=== PATIENT | female | born 1980 | race African-American/Black ===

== ENCOUNTER 2017-09-20 13:02 | Emergency (ER) | payer MEDICAID ==
[~2017-09-20] VITALS: Ht 182.9 cm; Wt 99.8 kg
[2017-09-20] MEDS ORDERED: SULFAMETH/TRIMETH 800/160 MG TABLET PO ONE (14:15)
[2017-09-20] MEDS ORDERED: SULFAMETH/TRIMETH 800/160 MG TABLET ONE (14:15)
[2017-09-20] MEDS ORDERED: FLUCONAZOLE 100 MG TABLET PO ONE (14:15)
[2017-09-20] MEDS ORDERED: FLUCONAZOLE 100 MG TABLET ONE (14:15)
--- NOTE | 2017-09-20 14:18 | NUR ---
MSE COMPLETED, MEDS ADMUINISTERED. PT D/C'D HOME, ACI/RX X1 GIVEN. PT AMBULATED W/O DIFF/TOOK ALL BELONGINGS.
[2017-09-20 14:20] VITALS: BP 110/68
== END 2017-09-20 14:22 | disposition home or self-care (01) ==
LOC: ER 13:10
DX: A49.02 Methicillin resistant Staphylococcus aureus infection, unspecified site (principal); I96 Gangrene, not elsewhere classified; J45.909 Unspecified asthma, uncomplicated; Z88.8 Allergy status to other drugs, medicaments and biological substances
CPT/HCPCS: A4663

== ENCOUNTER 2018-01-28 16:27 | Emergency (ER) | payer MEDICAID ==
[~2018-01-28] VITALS: Ht 180.3 cm; Wt 102.1 kg
--- NOTE | 2018-01-28 17:10 | NUR ---
NO BED AVAILABLE, PT EVALUATED IN HALLWAY.
--- NOTE | 2018-01-28 17:10 | NUR ---
DR WILMAN ARCOS PT.
[2018-01-28 17:31] LABS: BASOPHILS % (AUTO) 0.6 % (0.0-2.0); EOSINOPHILS # (AUTO) 0.2 K/uL (0.0-0.7); EOSINOPHILS % (AUTO) 2.4 % (0.0-7.0); HEMATOCRIT 30.7 % (31.2-41.9); HEMOGLOBIN 9.8 g/dL (10.9-14.3); LYMPHOCYTES # (AUTO) 2.5 K/uL (20.0-40.0); LYMPHOCYTES % (AUTO) 34.1 % (20.5-51.5); MEAN CORPUSCULAR HEMOGLOBIN 22.7 uug (24.7-32.8); MEAN CORPUSCULAR HGB CONC 32 g/dL (32.3-35.6); MEAN CORPUSCULAR VOLUME 70.8 fL (75.5-95.3); MONOCYTES # (AUTO) 0.6 K/uL (2.0-10.0); MONOCYTES % (AUTO) 7.6 % (0.0-11.0); NEUTROPHILS # (AUTO) 4.1 K/uL (1.8-8.9); NEUTROPHILS % (AUTO) 55.3 % (38.5-71.5); PLATELET COUNT (AUTO) 330 K/uL (179-408); RED BLOOD CELL COUNT(AUTO) 4.34 MIL/uL (3.63-4.92); WHITE BLOOD COUNT (AUTO) 7.3 K/uL (3.8-11.8)
[2018-01-28 17:51] LABS: CREATININE 0.8 mg/dL (0.6-1.3); POTASSIUM 3.5 mmol/L (3.5-5.1)
[2018-01-28 17:56] LABS: BILIRUBIN,DIRECT 0.1 mg/dL (0.0-0.2); BILIRUBIN,TOTAL 0.3 mg/dL (0.2-1.0); TOTAL PROTEIN, SERUM 8.2 g/dL (6.4-8.2)
--- NOTE | 2018-01-28 17:57 | NUR ---
AWAITING TEST RESULTS. PATIENT IS SITTING UP IN NO DISTRESS...
[2018-01-28 18:40] LABS: *BILIRUBIN,URIN NEGATIVE (NEGATIVE); *BLOOD, URINE NEGATIVE (NEGATIVE); *CLARITY,URINE CLOUDY (CLEAR); *COLOR,URINE YELLOW (YELLOW); *KETONES,URINE NEGATIVE (NEGATIVE); *PROTEIN,URINE NEGATIVE (NEGATIVE); *UROBILINOGEN,URINE 0.2 E.U./dl (NORMAL); LEUKOCYTE ESTERASE ,URINE TRACE (NEGATIVE); NITRITE, URINE NEGATIVE (NEGATIVE); PH,URINE 5.5 (5.0-8.0); UGLUCOSE NEGATIVE (NEGATIVE)
[2018-01-28 18:44] LABS: BACTERIA,URINE MODERATE /HPF (NONE SEEN); RBC,URINE 0-3 /HPF (0-3); SQUAMOUS EPITHELIAL CELL,UR MODERATE /HPF (NONE SEEN)
[2018-01-28] MEDS ORDERED: IBUPROFEN 800 MG TABLET PO ONE (19:30)
[2018-01-28] MEDS ORDERED: IBUPROFEN 800 MG TABLET ONE (19:34)
--- NOTE | 2018-01-28 20:20 | NUR ---
US TECH IN ROOM TO DO US
--- NOTE | 2018-01-28 20:24 | NUR ---
US PATRICIA AT BEDSIDE.
--- NOTE | 2018-01-28 20:51 | NUR ---
Patient discharged to home in stable conditon. Written and verbal after care instructions given. Patient verbalizes understanding of instructions.
[2018-01-28 20:52] VITALS: BP 110/74
== END 2018-01-28 20:52 | disposition home or self-care (01) ==
LOC: ER 16:30
DX: R10.13 Epigastric pain (principal); J45.909 Unspecified asthma, uncomplicated; Z88.6 Allergy status to analgesic agent
CPT/HCPCS: 36415; 76705; 80048; 80076; 81001; 83690; 84703; 85025; 99285; A4663

== ENCOUNTER 2018-02-04 22:45 | Emergency (ER) | payer MEDICAID ==
[~2018-02-04] VITALS: Ht 177.8 cm; Wt 103.0 kg
--- NOTE | 2018-02-05 00:28 | NUR ---
Patient discharged to home in stable conditon. Written and verbal after care instructions given. Patient verbalizes understanding of instructions. Patient able to ambulate unassisted with a steady gait. Patient left with all personal belongings.
[2018-02-05 00:33] VITALS: BP 116/62
== END 2018-02-05 00:28 | disposition home or self-care (01) ==
LOC: ER 22:46
DX: S81.051A Open bite, right knee, initial encounter (principal); J45.909 Unspecified asthma, uncomplicated; Z88.6 Allergy status to analgesic agent; W54.0XXA Bitten by dog, initial encounter; Y93.89 Activity, other specified; Y92.89 Other specified places as the place of occurrence of the external cause; Y99.8 Other external cause status
CPT/HCPCS: 99283; A4663

== ENCOUNTER 2018-11-28 21:07 | Emergency (ER) | payer MEDICAID, OTHER ==
[~2018-11-28] VITALS: Ht 180.3 cm; Wt 90.7 kg
--- NOTE | 2018-11-28 21:34 | NUR ---
Dr. Morin at bedside for MSE.
--- NOTE | 2018-11-28 21:44 | NUR ---
Patient discharged to home in stable conditon. Written and verbal after care instructions given. Patient verbalizes understanding of instructions. Pt ambulated out of ER with steady gait, no acute signs of distress, VSS, all belongings taken.
[2018-11-28 21:45] VITALS: BP 116/76
== END 2018-11-28 21:45 | disposition home or self-care (01) ==
LOC: ER 21:07
DX: B34.9 Viral infection, unspecified (principal); J45.909 Unspecified asthma, uncomplicated; F17.200 Nicotine dependence, unspecified, uncomplicated; Z88.6 Allergy status to analgesic agent
CPT/HCPCS: A4663

== ENCOUNTER 2019-01-24 13:38 | Emergency (ER) | payer OTHER ==
[~2019-01-24] VITALS: Ht 180.3 cm; Wt 99.8 kg
[2019-01-24 14:08] LABS: *BILIRUBIN,URIN NEGATIVE (NEGATIVE); *BLOOD, URINE NEGATIVE (NEGATIVE); *CLARITY,URINE CLEAR (CLEAR); *COLOR,URINE YELLOW (YELLOW); *KETONES,URINE NEGATIVE (NEGATIVE); *UROBILINOGEN,URINE 0.2 E.U./dl (NORMAL); LEUKOCYTE ESTERASE ,URINE NEGATIVE (NEGATIVE); NITRITE, URINE NEGATIVE (NEGATIVE); PH,URINE 5.5 (5.0-8.0); UGLUCOSE NEGATIVE (NEGATIVE)
[2019-01-24 14:09] LABS: *URINE HCG, QUAL NEGATIVE (NEGATIVE)
--- NOTE | 2019-01-24 14:32 | NUR ---
Patient discharged to home in stable conditon. Written and verbal after care instructions given. Patient verbalizes understanding of instructions.
[2019-01-27 08:11] LABS: *GC NAA Negative (Negative); *TRIC.VAG. NAA Negative (Negative)
== END 2019-01-24 14:34 | disposition home or self-care (01) ==
LOC: ER 13:38
DX: N76.0 Acute vaginitis (principal); J45.909 Unspecified asthma, uncomplicated; F17.200 Nicotine dependence, unspecified, uncomplicated; Z88.6 Allergy status to analgesic agent
CPT/HCPCS: 84703; 87210; 87491; A4663

== ENCOUNTER 2019-01-29 14:32 | Emergency (ER) | payer OTHER ==
[~2019-01-29] VITALS: Ht 180.3 cm; Wt 97.5 kg
--- NOTE | 2019-01-29 14:44 | NUR ---
PT IS A/OX4, PRESENTS TO THE ER C/O VAGINAL DISCHARGE. PT REPORTS SHE WAS SEEN IN THIS ER ON 01/24/19 AND DX W/ VAGINITIS. PT IS REQUESTING DIFLUCAN AND STATES "I KNOW I HAVE A YEAST INFECTION". VSS. PT DENIES PAIN, C/P, SOB, N/V/D, DIZZINESS, HEADACHE.
[2019-01-29] MEDS ORDERED: FLUCONAZOLE 100 MG TABLET PO ONE (15:00)
[2019-01-29] MEDS ORDERED: FLUCONAZOLE 100 MG TABLET ONE (15:06)
[2019-01-29 15:10] VITALS: BP 112/66
--- NOTE | 2019-01-29 15:10 | NUR ---
Patient discharged to home in stable conditon. Written and verbal after care instructions given. Patient verbalizes understanding of instructions. ALL BELONGINGS W/ PT. PT SELF-AMBULATED W/O DIFFICULTY.
== END 2019-01-29 15:11 | disposition home or self-care (01) ==
LOC: ER 14:32
DX: N76.0 Acute vaginitis (principal); J45.909 Unspecified asthma, uncomplicated; F17.200 Nicotine dependence, unspecified, uncomplicated; Z88.6 Allergy status to analgesic agent
CPT/HCPCS: A4663

== ENCOUNTER 2019-06-28 17:56 | Emergency (ER) | payer SELFPAY ==
[~2019-06-28] VITALS: Ht 180.3 cm; Wt 96.2 kg
--- NOTE | 2019-06-28 18:50 | NUR ---
Dr Caal at the bedside for MSE.
[2019-06-28 19:05] VITALS: BP 113/58
--- NOTE | 2019-06-28 19:06 | NUR ---
Patient discharged to home in stable conditon. Written and verbal after care instructions given. Patient verbalizes understanding of instructions.
== END 2019-06-28 19:06 | disposition home or self-care (01) ==
LOC: ER 17:56
DX: J32.9 Chronic sinusitis, unspecified (principal); J45.909 Unspecified asthma, uncomplicated; Z88.6 Allergy status to analgesic agent
CPT/HCPCS: A4663

== ENCOUNTER 2019-07-12 16:23 | Emergency (ER) | payer SELFPAY ==
[~2019-07-12] VITALS: Ht 180.3 cm; Wt 95.3 kg
--- NOTE | 2019-07-12 16:41 | NUR ---
ERMD at bedside for MSE
[2019-07-12] MEDS ORDERED: AZITHROMYCIN 250 MG TABLET PO ONE (16:45)
[2019-07-12] MEDS ORDERED: predniSONE 20 MG TABLET PO ONE (16:45)
[2019-07-12] MEDS ORDERED: AZITHROMYCIN 250 MG TABLET ONE (16:49)
[2019-07-12] MEDS ORDERED: predniSONE 50 MG TABLET ONE (16:49)
[2019-07-12] MEDS ORDERED: predniSONE 10 MG TABLET ONE (16:49)
[2019-07-12] MEDS ORDERED: IPRATROPIUM BROMIDE 0.5 MG/2.5 ML NEBU ONE (16:58)
[2019-07-12] MEDS ORDERED: ALBUTEROL SULFATE 2.5 MG/3 ML NEBU ONE (16:58)
[2019-07-12] MEDS ORDERED: IPRATROPIUM BROMIDE 0.5 MG/2.5 ML NEBU NEB ONE (17:00)
[2019-07-12] MEDS ORDERED: ALBUTEROL SULFATE 2.5 MG/3 ML NEBU NEB ONE (17:00)
[2019-07-12] MEDS ORDERED: POTASSIUM CHLORIDE 20 MEQ TAB.PRT.SR ONE (17:05)
--- NOTE | 2019-07-12 17:26 | NUR ---
Patient discharged to home in stable conditon. Written and verbal after care instructions given. Patient verbalizes understanding of instructions.
[2019-07-12 17:27] VITALS: BP 120/71
== END 2019-07-12 17:00 | disposition home or self-care (01) ==
LOC: ER 16:23
DX: J06.9 Acute upper respiratory infection, unspecified (principal); J45.909 Unspecified asthma, uncomplicated; F17.200 Nicotine dependence, unspecified, uncomplicated; Z88.6 Allergy status to analgesic agent
CPT/HCPCS: 94640; 99283; J7512 ×2; A4663; J3590; Q0144

== ENCOUNTER 2019-09-28 17:46 | Emergency (ER) | payer MEDICAID ==
[~2019-09-28] VITALS: Ht 180.3 cm; Wt 98.9 kg
--- NOTE | 2019-09-28 18:45 | NUR ---
PORFIRIO MACHUCA at bedside for MSE.
--- NOTE | 2019-09-28 19:09 | NUR ---
Patient discharged to home in stable conditon. Written and verbal after care instructions given. Patient verbalizes understanding of instructions. all belongings w/ pt. pt self-ambulated w/o difficulty.
[2019-09-28 19:11] VITALS: BP 123/72
== END 2019-09-28 19:11 | disposition home or self-care (01) ==
LOC: ER 17:46
DX: N76.0 Acute vaginitis (principal); J45.909 Unspecified asthma, uncomplicated; Z88.6 Allergy status to analgesic agent; Z60.2 Problems related to living alone
CPT/HCPCS: A4663

== ENCOUNTER 2020-03-15 16:03 | Emergency (ER) | payer SELFPAY ==
[~2020-03-15] VITALS: Ht 180.3 cm; Wt 91.6 kg
--- NOTE | 2020-03-15 16:43 | NUR ---
PT SEEN AND EVALUATED BY DR MARTINEZ.
--- NOTE | 2020-03-15 16:51 | NUR ---
Patient discharged to home in stable condition. Written and verbal after care instructions given. Patient verbalizes understanding of instructions. Stressed follow up or return to ER for worsening s/s.
== END 2020-03-15 16:53 | disposition home or self-care (01) ==
LOC: ER 16:06
DX: N76.0 Acute vaginitis (principal); S20.162A Insect bite (nonvenomous) of breast, left breast, initial encounter; W57.XXXA Bitten or stung by nonvenomous insect and other nonvenomous arthropods, initial encounter; Y92.89 Other specified places as the place of occurrence of the external cause; Y99.8 Other external cause status; Z86.14 Personal history of Methicillin resistant Staphylococcus aureus infection; J45.909 Unspecified asthma, uncomplicated; R55 Syncope and collapse; F17.200 Nicotine dependence, unspecified, uncomplicated
CPT/HCPCS: 93005; A4663

== ENCOUNTER 2020-04-15 13:56 | Emergency (ER) | payer SELFPAY ==
[~2020-04-15] VITALS: Ht 180.3 cm; Wt 97.5 kg
--- NOTE | 2020-04-15 14:23 | NUR ---
PT IS IN ROOM #1B. DR HENDRICKS EVALUATED THE PT.
== END 2020-04-15 14:25 | disposition home or self-care (01) ==
LOC: ER 13:56
DX: K12.0 Recurrent oral aphthae (principal); J02.9 Acute pharyngitis, unspecified; Z20.828 Contact with and (suspected) exposure to other viral communicable diseases; Z86.14 Personal history of Methicillin resistant Staphylococcus aureus infection; J45.909 Unspecified asthma, uncomplicated
CPT/HCPCS: A4663

== ENCOUNTER 2020-08-31 15:15 | Emergency (ER) | payer SELFPAY ==
[~2020-08-31] VITALS: Ht 180.3 cm; Wt 95.3 kg
[2020-08-31] MEDS ORDERED: FLUC150T PO (15:46)
[2020-08-31] MEDS ORDERED: PRED20TA PO (15:46)
[2020-08-31] MEDS ORDERED: AZIT250T13 PO (15:46)
--- NOTE | 2020-08-31 15:59 | NUR ---
Patient discharged to home in stable condition with brisk steady gait. Written and verbal after care instructions given to patient. Patient verbalized understanding & compliance of instructions. Stressed follow up with primary doctor & ENT or return to ER for worsening s/s.
== END 2020-08-31 16:00 | disposition home or self-care (01) ==
LOC: ER 15:15
DX: J32.9 Chronic sinusitis, unspecified (principal); H61.23 Impacted cerumen, bilateral; J45.909 Unspecified asthma, uncomplicated
CPT/HCPCS: A4663

== ENCOUNTER 2021-04-06 15:46 | Emergency (ER) | payer SELFPAY ==
[~2021-04-06] VITALS: Ht 177.8 cm; Wt 97.5 kg
[~2021-04-06 15:46] MED LIST: AZIT250T13 PO; FLUC150T PO; PRED20TA PO
[2021-04-06] MEDS ORDERED: FLUC150T PO (16:12)
[2021-04-06] MEDS ORDERED: DOXY100C5 PO (16:36)
[2021-04-06] MEDS ORDERED: CEFTRIAXONE 500 MG VIAL ONE (17:12)
[2021-04-06] MEDS: CEFTRIAXONE 500 MG VIAL IM ONE (17:13)
[2021-04-06] MEDS: LIDOCAINE HCL 2% 20 ML VIAL IJ ONE (17:13)
[2021-04-06 17:37] LABS: *BILIRUBIN,URIN NEGATIVE (NEGATIVE); *BLOOD, URINE NEGATIVE (NEGATIVE); *CLARITY,URINE CLEAR (CLEAR); *COLOR,URINE YELLOW (YELLOW); *KETONES,URINE NEGATIVE (NEGATIVE); *UROBILINOGEN,URINE 0.2 E.U./dl (NORMAL); LEUKOCYTE ESTERASE ,URINE NEGATIVE (NEGATIVE); NITRITE, URINE NEGATIVE (NEGATIVE); UGLUCOSE NEGATIVE (NEGATIVE)
[2021-04-06] MEDS ORDERED: METR-147 PO (17:57)
--- NOTE | 2021-04-06 18:13 | NUR ---
Gave pt RX and d/c instructions, pt verbalized understanding.
[2021-04-11 01:06] LABS: *GC NAA Negative (Negative); *TRIC.VAG. NAA Negative (Negative)
== END 2021-04-06 18:32 | disposition home or self-care (01) ==
LOC: ER 15:47
DX: N89.8 Other specified noninflammatory disorders of vagina (principal); J45.909 Unspecified asthma, uncomplicated; Z86.14 Personal history of Methicillin resistant Staphylococcus aureus infection; Z88.6 Allergy status to analgesic agent
CPT/HCPCS: 36415; 81003; 86592; 87086; 87210; 87491; 87806; 96372; 99283; J0696; A4663

== ENCOUNTER 2022-08-27 19:11 | Emergency (ER) | payer SELFPAY ==
[~2022-08-27] VITALS: Ht 180.3 cm; Wt 104.3 kg
[~2022-08-27 19:11] MED LIST changes: +DOXY100C5 PO; +METR-147 PO
--- NOTE | 2022-08-27 19:36 | NUR ---
Dr. Sanders evaluating patient at bedside. MSE in progress.
[2022-08-27] MEDS ORDERED: KETOROLAC TROMETHAMINE 30 MG INJ IVP ONE (20:00)
[2022-08-27] MEDS ORDERED: diphenhydrAMINE 50 MG/1 ML VIAL IV ONE (20:00)
[2022-08-27] MEDS ORDERED: IV NS 1000 ML 1,000 ML IV ONE (20:00)
[2022-08-27] MEDS ORDERED: METOCLOPRAMIDE HCL 10 MG/2 ML VIAL IV ONE (20:00)
[2022-08-27] MEDS ORDERED: diphenhydrAMINE 50 MG/1 ML VIAL ONE (20:05)
[2022-08-27] MEDS ORDERED: METOCLOPRAMIDE HCL 10 MG/2 ML VIAL ONE (20:06)
[2022-08-27] MEDS ORDERED: KETOROLAC TROMETHAMINE 30 MG INJ ONE (20:06)
[2022-08-27 20:14] LABS: HEMATOCRIT 29.5 % (31.2-41.9)
[2022-08-27 20:15] LABS: POTASSIUM 3.5 mmol/L (3.5-5.1)
[2022-08-27 20:34] LABS: MEAN CORPUSCULAR HEMOGLOBIN 22.7 uug (24.7-32.8); MEAN CORPUSCULAR VOLUME 71.4 fL (75.5-95.3); PLATELET COUNT (AUTO) 381 K/uL (179-408)
[2022-08-27] MEDS ORDERED: FERR325T28 PO (21:51)
[2022-08-27] MEDS ORDERED: DIPH25CA83 PO (21:51)
[2022-08-27] MEDS ORDERED: METO-295 PO (21:51)
[2022-08-27] MEDS ORDERED: NAPR-1164 PO (21:51)
[2022-08-27 22:56] VITALS: BP 120/66
== END 2022-08-27 22:05 | disposition home or self-care (01) ==
LOC: ER 19:12
DX: G43.909 Migraine, unspecified, not intractable, without status migrainosus (principal); Z88.6 Allergy status to analgesic agent; D50.9 Iron deficiency anemia, unspecified; J45.909 Unspecified asthma, uncomplicated; Z86.14 Personal history of Methicillin resistant Staphylococcus aureus infection
CPT/HCPCS: 99284; 96374; 96375; 96361; 80048; 83036; 83550; 83735; 85025; 36415; J1200; J1885; J2765; J7040; A4663

== ENCOUNTER 2023-10-05 12:43 | Emergency (ER) | payer SELFPAY ==
[~2023-10-05] VITALS: Ht 180.3 cm; Wt 102.5 kg
[~2023-10-05 12:43] MED LIST changes: +DIPH25CA83 PO; +FERR325T28 PO; +METO-295 PO; +NAPR-1164 PO
[2023-10-05 12:53] VITALS: O2SAT 99
[2023-10-05] MEDS ORDERED: FLUC200T PO (13:07)
[2023-10-05] MEDS ORDERED: FLUCONAZOLE 100 MG TABLET ONE (13:17)
[2023-10-05] MEDS: FLUCONAZOLE 100 MG TABLET PO ONE (13:19)
== END 2023-10-05 13:22 | disposition home or self-care (01) ==
LOC: ER 12:44
DX: B37.9 Candidiasis, unspecified (principal); D64.9 Anemia, unspecified; J45.909 Unspecified asthma, uncomplicated; Z79.899 Other long term (current) drug therapy; Z60.2 Problems related to living alone; Z88.1 Allergy status to other antibiotic agents
CPT/HCPCS: A4606; A4663

== ENCOUNTER 2024-03-20 16:29 | Emergency (ER) | payer SELFPAY ==
[~2024-03-20] VITALS: Ht 180.3 cm; Wt 101.2 kg
[~2024-03-20 16:29] MED LIST changes: +FLUC200T PO
[2024-03-20 16:35] VITALS: O2SAT 99
[2024-03-20] MEDS ORDERED: LORA0.5T48 PO (17:42)
[2024-03-20] MEDS ORDERED: FERR325T23 PO (17:44)
== END 2024-03-20 17:51 | disposition home or self-care (01) ==
LOC: ER 16:31
DX: F41.0 Panic disorder [episodic paroxysmal anxiety] (principal); R42 Dizziness and giddiness; D64.9 Anemia, unspecified; F17.200 Nicotine dependence, unspecified, uncomplicated; J45.909 Unspecified asthma, uncomplicated; Z98.890 Other specified postprocedural states; Z79.1 Long term (current) use of non-steroidal anti-inflammatories (NSAID); Z79.899 Other long term (current) drug therapy; Z60.2 Problems related to living alone; Z88.1 Allergy status to other antibiotic agents
CPT/HCPCS: A4606; A4663